=== PATIENT | female | born 1990 | race African-American/Black ===

== ENCOUNTER → 2016-07-07 | Outpatient (CLI) | payer OTHER ==
--- NOTE | 2016-07-07 15:57 | US ---
EXAMINATION TYPE: US OB anatomy transabd DATE OF EXAM: 07/07/2016 2:56 PM COMPARISON: In pacs CLINICAL HISTORY: Z34.80 Encount Supervision Normal TECHNIQUE: Transabdominal (TA) GESTATIONAL AGE / DATING Physician Established: (34 weeks/6 days) EDC: 08/12/2016 Dates by LMP: Unknown Dates by First Scan: (34 weeks/2 days) EDC: 08/16/2016 Dates by Current Scan: (33 weeks/6 days) EDC: 08/19/2016 SURVEY IUP: Single PLACENTA: Fundal/Anterior PREVIA: No Previa SEBASTIAN: 14.1 cm Normal CERVICAL LENGTH (transabdominal: norm > 3.0cm): 3.7 cm BIOMETRY PRESENTATION: Vertex LIE: Longitudinal BPD: 8.4 cm 33 weeks / 6 days HC: 30.0 cm 33 weeks / 2 days AC: 30.3 cm 34 weeks / 2 days FL: 6.5 cm 33 weeks / 4 days ESTIMATED WEIGHT IN GRAMS: 2303 grams ESTIMATED WEIGHT IN LBS/OZS: 5 lbs. 1 oz. WEIGHT PERCENTAGE BASED ON ESTABLISHED DATES: 21% HC/AC: 0.99 Normal FL/AC: 21% Normal HEART RATE: 152 bpm RHYTHM: Normal TECHNOLOGIST IMPRESSION: Viable single IUP measuring 33 weeks 6 days with a heart rate of 152bpm and an estimated delivery date of 08/19/2016 IMPRESSION: 1. Single intrauterine gestation 32 weeks 6 days gestation with heart rate measured 152 bpm. 2. Calculated EDC based on the current ultrasound measurements is 08/19/2016
== END | disposition home or self-care (01) ==
LOC: RADUSWWP 14:09
PROVIDERS: ATTEND Obstetrics & Gynecology
DX: Z34.80 Encounter for supervision of other normal pregnancy, unspecified trimester (principal); Z3A.32 32 weeks gestation of pregnancy
CPT/HCPCS: 76805

== ENCOUNTER 2017-06-13 21:48 | Emergency (ER) | payer OTHER ==
[2017-06-13 22:07] VITALS: PULSE 63; RESP 115; TEMP 98
[2017-06-13] MEDS ORDERED: KETOROLAC 30 MG/ML 1 ML VIAL ONE (23:00)
[2017-06-13] MEDS ORDERED: SODIUM CHLORIDE 0.9% 1,000 ML BAG ONE (23:00)
[2017-06-13] MEDS ORDERED: ONDANSETRON 4 MG/2 ML VIAL ONE (23:00)
[2017-06-14 05:06] LABS: ALT 46 U/L (9-52); AST 33 U/L (14-36); Albumin 4.3 g/dL (3.5-5.0); Alkaline Phosphatase 68 U/L (38-126); Amylase 83 U/L (30-110); Anion Gap 10 mmol/L; Blood Urea Nitrogen 6 mg/dL (7-17); Calcium 9.4 mg/dL (8.4-10.2); Carbon Dioxide 25 mmol/L (22-30); Chloride 107 mmol/L (98-107); Glucose 83 mg/dL (74-99); Lipase 196 U/L (23-300); Potassium 3.9 mmol/L (3.5-5.1); Sodium 142 mmol/L (137-145); Total Bilirubin 0.3 mg/dL (0.2-1.3); Total Protein 7.3 g/dL (6.3-8.2)
[2017-06-14 05:10] LABS: Appearance,Urine Cloudy (Clear); Bilirubin,Urine Negative (Negative); Blood,Urine Negative (Negative); Color,Urine Yellow; Glucose,Urine (UA) Negative (Negative); Ketones,Urine Negative (Negative); Leukocyte Esterase,Urine Small (Negative); Mucus,Urine Many /hpf; Nitrite,Urine Negative (Negative); Protein,Urine Trace (Negative); RBC,Urine 1 /hpf (0-5); Specific Gravity,Urine 1.025 (1.001-1.035); Squamous Epithelial Cell,Urine 13 /hpf (0-4); WBC,Urine 5 /hpf (0-5)
[2017-06-14 05:35] LABS: Basophils % (A) 1 %; Eosinophils # (A) 0.1 k/uL (0-0.7); Eosinophils % (A) 4 %; HCT 32.5 % (34.0-46.0); HGB 10.1 gm/dL (11.4-16.0); Hypochromasia Marked; Lymphocytes # (A) 1.5 k/uL (1.0-4.8); Lymphocytes % (A) 42 %; MCH 24.8 pg (25.0-35.0); MCHC 30.9 g/dL (31.0-37.0); MCV 80.3 fL (80.0-100.0); Monocytes # (A) 0.3 k/uL (0-1.0); Monocytes % (A) 9 %; Neutrophils # (A) 1.4 k/uL (1.3-7.7); Neutrophils % (A) 41 %; Platelet Count 283 k/uL (150-450); Poikilocytosis Slight; RBC 4.05 m/uL (3.80-5.40); RDW 14.5 % (11.5-15.5); WBC 3.5 k/uL (3.8-10.6)
--- NOTE | 2017-06-14 06:14 | XR ---
EXAM: XR Abdomen, 1 View CLINICAL HISTORY: No prior, left flank pain, Nausea and vomiting, neg hcg TECHNIQUE: Frontal supine view of the abdomen/pelvis. COMPARISON: No relevant prior studies available. FINDINGS: Gastrointestinal tract: Stool in the cecum. No bowel dilation. Bones/joints: Unremarkable. IMPRESSION: No acute intra-abdominal process. Probable colonic fecal stasis. Correlate clinically.
== END 2017-06-14 02:11 | disposition home or self-care (01) ==
LOC: EC 21:48
DX: R10.9 Unspecified abdominal pain (principal); R11.10 Vomiting, unspecified; R19.7 Diarrhea, unspecified
CPT/HCPCS: 99284; 96374; 96375; 96361; 36415; 80053; 82150; 83690; 85025; 81001; 81025; 74018; J2405; J1885